=== PATIENT | male | born 1950 | race Caucasian/White ===

== ENCOUNTER → 2020-08-31 09:47 | Outpatient (BNVA) | payer MEDICARE, SELFPAY | PROVIDERS: PCP Nurse Practitioner; Referring Provider Nurse Practitioner Family; Visit Provider Anesthesiology Pain Medicine | DX: M47.816 Spondylosis without myelopathy or radiculopathy, lumbar region (principal); M48.062 Spinal stenosis, lumbar region with neurogenic claudication; M54.9 Dorsalgia, unspecified; Z79.891 Long term (current) use of opiate analgesic | CPT/HCPCS: 99204 ==

== ENCOUNTER 2020-09-22 14:26 | Outpatient (CLI) | payer MEDICARE, SELFPAY ==
--- NOTE | 2020-09-22 14:45 | CT_ITS ---
WS: [id number] CT LUMBAR SPINE TECHNIQUE: Noncontrast CT of the lumbar spine with coronal and sagittal reformatted images. CLINICAL INFORMATION: M48.062 - Spinal stenosis, lumbar region with neurogenic ... COMPARISON: None. DLP: 1788.[address] scans at [facility] use at least one of these dose optimization techniques: automat ed exposure control; mA and/or kV adjustment per patient size (includes targeted exams where dose is matched to clinical indication); or iterative reconstruction. FINDINGS: Mild lumbar curve convex right. Grade 1 anterolisthesis L5 on S1 measuring 5.2 mm with spondylolysis. Interbody bony fusion L2-L3 and L3-L4 with marginal osteophytes. Disc space narrowing T12-L1, L1-L2, L4-L5, and L5-S1. Associated vacuum disc phenomenon at these levels. Chronic erosive changes involvi ng the L4-L5 endplates likely degenerative. L1-L2: Disc desiccation. Spinal canal and foramen are patent. Mild facet arthropathy. Spinal canal an d foramen are patent. L2-L3: Interbody bony fusion. Mild left foraminal narrowing. Spinal canal and foramen are patent. Mod erate facet arthropathy.. L3-L4: Laminectomy defects with interbody bony fusion. Moderate facet arthropathy. Spinal canal is pa tent. Osteophytic ridging with narrowing of the subarticular recess bilaterally. Moderate left and mi ld right bony foraminal narrowing. Left lateral osteophytes impinge the far exiting left L3 nerve connie t. L4-L5: Mild disc bulging with osteophytic ridging. Vacuum disc phenomenon. Small right foraminal prot rusion with mild right foraminal narrowing. Left foramen is patent. Advanced facet arthropathy. Mild central canal stenosis. L5-S1: Grade 1 anterolisthesis L5 on S1 measuring 5 mm. Chronic spondylolysis. Narrowing of the subar ticular recess bilaterally. Moderate to severe right greater than left bony foraminal narrowing with contact of the exiting L5 nerve roots. Adrenal Glands are normal. Bilateral renal cortical atrophy. Normal caliber abdominal aorta. Aortic c alcification. CT/CT lumbar spine wo con* [id number] IMPRESSION: 1. Mild lumbar curve. No acute compression. 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 Decompressive laminectomy defects L3-4. 2. Grade 1 anterolisthesis L5 on S1 with chronic spondylolysis. 3. Moderate to severe L5-S1 foraminal narrowing right greater than left with i mpingement on the exiting right greater than left L5 nerve roots. 4. Left eccentric osteophytes L3-4 contacts the far exiting left L3 nerve root with mild left foraminal narrowing. 5. Moderate to advanced facet arthropathy L4-L5
== END 2020-09-22 14:27 | disposition home or self-care (01) ==
LOC: RADWPI 14:32
PROVIDERS: PCP Nurse Practitioner; Visit Provider Anesthesiology Pain Medicine
DX: M48.062 Spinal stenosis, lumbar region with neurogenic claudication (principal); M47.897 Other spondylosis, lumbosacral region; M25.78 Osteophyte, vertebrae; M12.88 Other specific arthropathies, not elsewhere classified, other specified site; Z98.1 Arthrodesis status
CPT/HCPCS: 72131

== ENCOUNTER → 2020-09-28 12:33 | Outpatient (BNVA) | payer MEDICARE, SELFPAY | PROVIDERS: PCP Nurse Practitioner; Visit Provider Anesthesiology Pain Medicine | DX: M54.9 Dorsalgia, unspecified (principal); G54.6 Phantom limb syndrome with pain; Z94.0 Kidney transplant status | CPT/HCPCS: 99215 ==

== ENCOUNTER → 2020-10-19 10:30 | Outpatient (BNVA) | payer MEDICARE, SELFPAY | PROVIDERS: PCP Nurse Practitioner; Visit Provider Nurse Practitioner Family | DX: N18.9 Chronic kidney disease, unspecified (principal); Z94.0 Kidney transplant status | CPT/HCPCS: 80053; 80197; 81003; 82570; 84100; 84156; 85025 ==

== ENCOUNTER → 2020-10-24 13:07 | Outpatient (BNVA) | payer MEDICARE, SELFPAY | PROVIDERS: PCP Nurse Practitioner; Visit Provider Anesthesiology Pain Medicine | DX: M47.816 Spondylosis without myelopathy or radiculopathy, lumbar region (principal); M54.9 Dorsalgia, unspecified | CPT/HCPCS: 64493; 64494; 64495; J3490 ==

== ENCOUNTER → 2020-10-31 09:15 | Outpatient (BNVA) | payer MEDICARE, SELFPAY | PROVIDERS: PCP Nurse Practitioner; Referring Provider Nurse Practitioner Family; Visit Provider Nurse Practitioner Family | DX: E10.22 Type 1 diabetes mellitus with diabetic chronic kidney disease (principal); Z94.0 Kidney transplant status | CPT/HCPCS: 80061; 82310; 83036; 83970 ==

== ENCOUNTER → 2020-11-07 08:44 | Outpatient (BNVA) | payer MEDICARE, SELFPAY | PROVIDERS: PCP Nurse Practitioner; Visit Provider Anesthesiology Pain Medicine | DX: M54.5 Low back pain (principal); G54.6 Phantom limb syndrome with pain; Z87.891 Personal history of nicotine dependence | CPT/HCPCS: 99214 ==

== ENCOUNTER → 2020-11-14 13:03 | Outpatient (BNVA) | payer MEDICARE, SELFPAY | PROVIDERS: PCP Nurse Practitioner; Visit Provider Anesthesiology Pain Medicine | DX: M47.816 Spondylosis without myelopathy or radiculopathy, lumbar region (principal); Z87.891 Personal history of nicotine dependence | CPT/HCPCS: 64635; 64636; J1030 ==

== ENCOUNTER → 2020-11-24 10:47 | Outpatient (BNVA) | payer MEDICARE, SELFPAY | PROVIDERS: PCP Nurse Practitioner; Referring Provider Nurse Practitioner Family; Visit Provider Nurse Practitioner Family | DX: I13.0 Hypertensive heart and chronic kidney disease with heart failure and stage 1 through stage 4 chronic kidney disease, or unspecified chronic kidney disease (principal); E10.22 Type 1 diabetes mellitus with diabetic chronic kidney disease; N18.32 Chronic kidney disease, stage 3b; I50.32 Chronic diastolic (congestive) heart failure; Z94.0 Kidney transplant status; D61.811 Other drug-induced pancytopenia | CPT/HCPCS: 80053; 80061; 80197; 81003; 82043; 82306; 82310; 83036; 83970; 85025 ==

== ENCOUNTER → 2020-12-05 12:22 | Outpatient (BNVA) | payer MEDICARE, SELFPAY | PROVIDERS: PCP Nurse Practitioner; Visit Provider Anesthesiology Pain Medicine | DX: M47.816 Spondylosis without myelopathy or radiculopathy, lumbar region (principal); Z87.891 Personal history of nicotine dependence | CPT/HCPCS: 64635; 64636; J1030 ==

== ENCOUNTER 2021-01-11 06:00 | Outpatient (RCR) | payer MEDICARE, SELFPAY | END 2021-01-25 23:59 | disposition home or self-care (01) | LOC: SOT 06:00 | PROVIDERS: PCP Nurse Practitioner; Referring Provider Nurse Practitioner; Visit Provider Nurse Practitioner | DX: Z89.619 Acquired absence of unspecified leg above knee (principal) | CPT/HCPCS: 97166 ==

== ENCOUNTER → 2021-01-12 10:32 | Outpatient (BNVA) | payer MEDICARE, SELFPAY | PROVIDERS: PCP Nurse Practitioner; Visit Provider Nurse Practitioner Family | DX: E10.22 Type 1 diabetes mellitus with diabetic chronic kidney disease (principal); Z94.0 Kidney transplant status; E10.10 Type 1 diabetes mellitus with ketoacidosis without coma | CPT/HCPCS: 80061; 82310; 83036; 83970 ==